=== PATIENT | female | born 1985 | race African-American/Black ===

== ENCOUNTER 2021-12-09 04:09 | Emergency (ER) | payer MEDICAID ==
[~2021-12-09] VITALS: Ht 170.2 cm; Wt 77.1 kg
[2021-12-09] MEDS ORDERED: MAGNESIUM/ALUMINUM HYDROXIDE/SIMETHICONE 30ML UDC PO ONE (04:30)
[2021-12-09] MEDS ORDERED: FAMOTIDINE 20MG TABLET PO ONE (04:30)
[2021-12-09] MEDS ORDERED: DICYCLOMINE 10 MG/5 ML ORAL SYR PO ONE (04:30)
[2021-12-09] MEDS ORDERED: ONDA4TAB50 MT (04:30)
[2021-12-09] MEDS ORDERED: VISCOUS LIDOCAINE 2% 15 ML UDC PO ONE (04:30)
[2021-12-09] MEDS ORDERED: SODIUM CHLORIDE 0.9% 1,000 ML IV ONE (04:30)
[2021-12-09] MEDS ORDERED: ONDANSETRON HCL 4MG/2ML INJ IV ONE (04:30)
[2021-12-09] MEDS ORDERED: TOPUD PO (06:10)
[2021-12-09] MEDS ORDERED: LOPE2CAP14 PO (06:10)
[2021-12-09] MEDS ORDERED: LOPERAMIDE HCL 2MG CAPSULE PO ONE (06:15)
[2021-12-09] MEDS ORDERED: ACETAMINOPHEN WITH CODEINE 300/30MG TABLET PO ONE (06:15)
[2021-12-09 06:34] VITALS: BP 119/69
== END 2021-12-09 06:44 | disposition home or self-care (01) ==
LOC: ER 04:09
DX: U07.1 COVID-19 (principal); K29.70 Gastritis, unspecified, without bleeding
CPT/HCPCS: 81025; 96361; 96374; 99284; J2405; J7030